=== PATIENT | female | born 1990 | race Hispanic/Latino ===

== ENCOUNTER 2016-11-06 19:57 | Emergency (ER) | payer OTHER ==
[~2016-11-06 19:57] MED LIST: ASCO100T11 PO; CYCL10TA9 PO; FERR-83 PO; IBUP-1827 PO; META800T16 PO; OMEP20CA11 PO; ONDA8TAB7 PO; OXYC1TAB24 PO; OXYC5TAB72 PO; PREN-121 PO
[2016-11-06 19:59] VITALS: BP 130/80; PULSE 104; RESP 16; O2SAT 98
--- NOTE | 2016-11-06 21:40 | ED.REPORT ---
HPI-General Illness Date of Service Nov 06, 2016 ED Provider: Floyd Trevino MD A 24 week A1 26 year old female with a history of migraines, c- section, and hyperthyroidism presents to the ED due to an electrical shock from a GFI kitchen outlet. The pt was cleaning the area with a sponge today when a bubble contacted the outlet. She was wearing shoes at the time and felt the shock through her whole body. She is now experiencing substernal chest soreness. The pt has been cleared by [facility]. Nursing Notes Stated Complaint: OUTLET SHOCK Chief Complaint: General Complaint Nursing Notes Reviewed: Yes Allergies: Coded Allergies: hydrocodone (Verified Allergy, Intermediate, rash--itch, 07/24/16) Scheduled Ascorbic Acid (Vitamin C) 100 Mg Tablet 100 MG PO QAM Ferrous Sulfate (Ferrous Sulfate) 325 Mg Tablet 325 MG PO DAILY Omeprazole (Omeprazole) 20 Mg Capsule.dr 20 MG PO BID Vit #108/Iron/FA ( One Tablet) 1 Each Tablet 1 EACH PO DAILYAC Scheduled PRN Cyclobenzaprine (Cyclobenzaprine) 10 Mg Tablet 10 MG PO HS PRN PRN Spasm Ibuprofen (Ibuprofen) 600 Mg Tablet 600 MG PO Q6H PRN PRN For Pain Ibuprofen (Ibuprofen) 600 Mg Tablet 600 MG PO QID PRN PRN For Pain Metaxalone (Skelaxin) 800 Mg Tablet 800 MG PO TID PRN PRN For Spasm Ondansetron ODT (Zofran ODT) 8 Mg Tablet 8 MG PO TID PRN PRN For Nausea oxyCODONE (oxyCODONE) 5 Mg Tablet 5-10 MG PO Q4H PRN PRN For Pain oxyCODONE-Acetaminophen 5-325 mg (oxyCODONE-Acetaminophen 5-325 mg) 1 Each Tablet 1-2 TAB PO Q6H PRN PRN For Pain General Time Seen by : 21:39 Chief Complaint Other (Electrical shock) Hx Obtained From: Patient Arrived By: Walk-in Sudden in Onset?: Yes Onset Occurred: 1 - 4 hours ago Recent Healthcare: No recent hospitalization, Recent doctor visit Similar Sx Previous: No Past Medical History Past Medical History History of ovarian cysts Hyperthyroid A1 Hx migraines GERD previous back injury while lifting at work Blood type A+ Past Surgical History x2 Reports: Tonsillectomy Smoking History Unknown if Ever Smoker Social History Alcohol Use: "Social" Drug Use: THC Other Social History: Good social support, Local resident Ambulatory Status Independent Review of Systems Full Review of Systems Constitutional: Denies: Fever Cardiovascular: Reports: Chest pain ("soreness") GI: Denies: Abdominal pain Musculoskeletal: Denies: Back pain Skin: Denies Rash Complete sys rev & neg: except as marked. Physical Exam Vital Signs Vital Signs Date Time Temp Pulse Resp B/P Pulse Ox O2 Delivery O2 Flow Rate FiO2 11/06/16 22:14 101 21 96 Room Air 11/06/16 19:59 36.8 104 16 130/80 98 Room Air Initial VS: Reviewed General/Constitutional: Awake, Alert Head / Eyes: Atraumatic, Normocephalic, PERRL, EOMI ENT: Atraumatic, Airway patent, Mucous membranes moist Neck: Atraumatic, Supple, Full range of motion Respiratory / Chest: Atraumatic, Breath sounds NL, Breath sounds = bilat, No respiratory distress Cardiovascular: Heart rate NL, Regular rhythm, Heart sounds NL Abdomen: Atraumatic, Soft, Non-tender Back: Atraumatic, Full range of motion Upper Extremities Upper Extremity / MS: Atraumatic, Full range of motion Lower Extremity / Pelvis / MS: Atraumatic, Full range of motion Skin: Atraumatic, Color NL, No rash, Warm, Dry Neurologic: Oriented X3, Speech NL, No motor deficits, No sensory deficits Psychiatric: Affect NL, Mood NL Re-Eval/Medical Decision Med Decision/Clinical Course Discharge and a wall out leg in the kitchen should have been on a GFI switch and therefore should not have been able to deliver a dangerous level of voltage. She has no wu on her hand though she does report some muscle soreness. The center has evaluated her fetus and has no concerns at this time. I do not believe that there is evidence for a dangerous select with discharge at this point and I think that discharge to home is appropriate. Counseled Regarding: Diagnosis, Need for follow-up, When/why to return to ED Discharge & Departure Primary Impression: Electric shock Encounter type: initial encounter Qualified Code: T75.4XXA - Electrocution, initial encounter Disposition: Home Discharge Condition All VS Reviewed: Yes Condition: Stable Additional Instructions: It is likely that you will have some muscle soreness, but there should not be any dangerous repercussions. Follow up with your primary care physician for further evaluation. Return to the emergency department if you develop any new or worsening symptoms. Referrals: Maria Teresa Cantu MD (PCP) Alberto Attestation Portions of this note were transcribed by Cooper Smart. I, Dr. Trevino personally performed the history, physical exam and medical decision-making; I reviewed and confirmed the accuracy of the information in the transcribed note. Signed by: Alberto Alatorre, 11/06/2016 and 22:42. copies to: Maria Teresa Cantu MD, Kirk H MD Nov 06, 2016 21:40 COOPER SMART Nov 06, 2016 22:05
[2016-11-06 22:14] VITALS: PULSE 101; RESP 21; O2SAT 96
== END 2016-11-06 22:15 | disposition home or self-care (01) ==
LOC: SED 19:57
DX: O9A.212 Injury, poisoning and certain other consequences of external causes complicating pregnancy, second trimester (principal); T75.4XXA Electrocution, initial encounter; W86.0XXA Exposure to domestic wiring and appliances, initial encounter; Y93.E5 Activity, floor mopping and cleaning; Y92.000 Kitchen of unspecified non-institutional (private) residence as the place of occurrence of the external cause; Y99.8 Other external cause status; Z3A.24 24 weeks gestation of pregnancy; K21.9 Gastro-esophageal reflux disease without esophagitis; Z88.5 Allergy status to narcotic agent

== ENCOUNTER 2016-12-05 21:07 | Emergency (ER) | payer OTHER ==
[~2016-12-05] VITALS: Ht 165.1 cm; Wt 103.6 kg
[2016-12-05 21:22] VITALS: BP 137/85; PULSE 110; RESP 18; O2SAT 99
--- NOTE | 2016-12-05 22:13 | ED.REPORT ---
HPI-Back Pain Under 40 Date of Service Dec 05, 2016 ED Provider: Werner Nicolas MD The patient is a 26 year old female who is 28 weeks presents to the ED with increasingly severe lower back pain after picking up her 5 year old daughter today. She denies fever, bleeding, bowel or bladder control, numbness or weakness in legs. She reports an uncomplicated, healthy, so far. She has one 5 year old daughter, also with an uncomplicated . BP is 138 /85. Nursing Notes Stated Complaint: LOW BACK PAIN 27 WKS PREG AND CLEARED Chief Complaint: General Complaint Nursing Notes Reviewed: Yes Allergies: Coded Allergies: hydrocodone (Verified Allergy, Intermediate, rash--itch, 07/24/16) Scheduled Ascorbic Acid (Vitamin C) 100 Mg Tablet 100 MG PO QAM Ferrous Sulfate (Ferrous Sulfate) 325 Mg Tablet 325 MG PO DAILY Omeprazole (Omeprazole) 20 Mg Capsule.dr 20 MG PO BID Vit #108/Iron/FA ( One Tablet) 1 Each Tablet 1 EACH PO DAILYAC Scheduled PRN Cyclobenzaprine (Cyclobenzaprine) 10 Mg Tablet 10 MG PO HS PRN PRN Spasm Ibuprofen (Ibuprofen) 600 Mg Tablet 600 MG PO Q6H PRN PRN For Pain Ibuprofen (Ibuprofen) 600 Mg Tablet 600 MG PO QID PRN PRN For Pain Metaxalone (Skelaxin) 800 Mg Tablet 800 MG PO TID PRN PRN For Spasm Ondansetron ODT (Zofran ODT) 8 Mg Tablet 8 MG PO TID PRN PRN For Nausea oxyCODONE (oxyCODONE) 5 Mg Tablet 5-10 MG PO Q4H PRN PRN For Pain oxyCODONE-Acetaminophen 5-325 mg (oxyCODONE-Acetaminophen 5-325 mg) 1 Each Tablet 1-2 TAB PO Q6H PRN PRN For Pain General Time Seen by MD: 22:12 Chief Complaint Back pain Hx Obtained From: Patient Arrived By: Walk-in Sudden in Onset?: Yes Onset Occurred: Just prior to arrival Symptom Duration: Since onset Caused by: Lifting Location: : Spinal lumbar area Quality: Painful Radiation: : Does not radiate Severity: Current: Mild Recent Healthcare: Recent doctor visit Similar Sx Previous: Yes Past Medical History Past Medical History History of ovarian cysts Hyperthyroid A1 Hx migraines GERD previous back injury while lifting at work Blood type A+ Past Surgical History x2 Reports: Tonsillectomy Smoking History Unknown if Ever Smoker Social History Alcohol Use: "Social" Drug Use: THC Other Social History: Good social support, Local resident Ambulatory Status Independent Review of Systems Constitutional: Denies: Fever Female: Reports: , Denies: Dysuria, Incontinence, Vaginal bleeding - abnl Musculoskeletal: Reports: Back pain Neurologic: Denies: Headache, Numbness, Seizure, Weakness Complete sys rev & neg: except as marked. Physical Exam Physical Exam Notes: no step off Initial Vital Signs Vital Signs (First) Date Time Temp Pulse Resp B/P Pulse Ox O2 Delivery O2 Flow Rate FiO2 12/05/16 21:22 36.7 110 18 137/85 99 12/05/16 22:40 Room Air Initial VS: Reviewed Head / Eyes: Atraumatic, Normocephalic Neck: Supple, Non-tender Respiratory: Breath sounds normal Cardiovascular: Regular rate & rhythm, Heart sounds normal Extremities: Vascular intact, No tenderness Skin: Warm, Dry Psychiatric: Mood/affect normal General/Constitutional: Awake, Alert, Cooperative Back: Inspection NL no focal midline tenderness Neurologic: Oriented X3, Speech NL, No motor deficits Abdomen: Atraumatic, Soft, Non-tender no step off Interpretation & Diagnostics Lab Results Interpretation Test 12/05/16 21:43 Urine Color Straw (YELLOW) Urine Appearance Clear (CLEAR,HAZY) Urine pH 6.5 (5.0-8.0) Urine Specific [place] 1.000 (1.003-1.035) Urine Protein Negativemg/dL (NEG,TRACE) Urine Glucose (UA) Negativemg/dL (NEGATIVE) Urine Ketones Negativemg/dL (NEGATIVE) Urine Occult Blood Trace (NEGATIVE) Urine Nitrite Negative (NEGATIVE) Urine Bilirubin Negative (NEGATIVE) Urine Urobilinogen Normalmg/dL (NORMAL) Urine Leukocyte Esterase Negative (NEGATIVE) Urine RBC 0-2/hpf (0-2) Urine WBC 0-5/hpf (0-5) Urine Epithelial Cells Occasional/hpf (NONE-MOD) Urine Crystals None seen (NONE SEEN) Urine Bacteria None/hpf (NONE-FEW) Urine Hyaline Casts None/lpf (NONE) Urine Granular Casts None seen (NONE SEEN) Urine Waxy Casts None seen (NONE SEEN) Urine Red Blood Cell Casts None seen (NONE SEEN) Urine White Blood Cell Casts None seen (NONE SEEN) Urine Mucus None seen (None Seen) Urine Trichomonas None seen (NONE SEEN) Urine Yeast None (NONE SEEN) Urinalysis Comment None Urine Culture Reflexed Not indicated Re-Eval/Medical Decision Consultation : Referral / Consult Name: Maria Teresa Cantu MD Call Returned at: 22:26 Note: Discussed BP with OB. Dr. Cantu agrees with plan, no further evaluation needed at the ED. Counseled Regarding: Diagnosis, Lab results, Need for follow-up, When/why to return to ED Discharge & Departure Impression: Primary Impression: Low back strain Encounter type: initial encounter Qualified Code: S39.012A - Strain of muscle, fascia and tendon of lower back, initial encounter Disposition: Home All VS Reviewed: Yes Condition: Stable Additional Instructions: Use ice and Tylenol to help with pain. Tylenol can be dosed at 1,000mg no more than 4 times a day with doses 6 hours or more apart. Keep ice packs wrapped in cloth, remove after 10-15 minutes, you can do this several times a day. Activity as tolerated, rest on a firm surface with knees bent slighty. It is normal for the ligaments to loosen up during - this can predispose to back pain. You may be sore a few days. Follow up with Dr. Baugh this week. If you start having fevers, weakness, or numbness in legs please return to the Emergency Department for further evaluation. Referrals: Maria Teresa Cantu MD (PCP) Scribe Attestation Portion of this note were transcribed by Isabella Parker. I, Dr. Nicolas, personally performed the history, physical exam, and medical decision-making: I reviewed and confirmed the accuracy for the information in the transcribed note. Signed by: diana Jeong, 12/05/16 2300 copies to: Maria Teresa Cantu MD, Donald L MD Dec 05, 2016 22:12 Isabella Parker Dec 05, 2016 22:21
[2016-12-05 22:27] LABS: APPEARANCE,URINE CLEAR (CLEAR,HAZY); COLOR,URINE STRAW (YELLOW); OCCULT BLOOD,URINE TRACE (NEGATIVE); PH,URINE 6.5 (5.0-8.0); UROBILINOGEN,URINE NORMAL (NORMAL)
[2016-12-05 22:40] VITALS: BP 136/80; PULSE 100; RESP 17; O2SAT 98
== END 2016-12-05 22:41 | disposition home or self-care (01) ==
LOC: SED 21:07
DX: O9A.213 Injury, poisoning and certain other consequences of external causes complicating pregnancy, third trimester (principal); S39.012A Strain of muscle, fascia and tendon of lower back, initial encounter; X50.0XXA Overexertion from strenuous movement or load, initial encounter; Y92.9 Unspecified place or not applicable; Y93.89 Activity, other specified; Y99.8 Other external cause status; K21.9 Gastro-esophageal reflux disease without esophagitis; E05.90 Thyrotoxicosis, unspecified without thyrotoxic crisis or storm; Z3A.28 28 weeks gestation of pregnancy; Z87.42 Personal history of other diseases of the female genital tract; Z88.5 Allergy status to narcotic agent

== ENCOUNTER 2017-01-26 01:36 | Emergency (ER) | payer OTHER ==
[~2017-01-26] VITALS: Ht 165.1 cm; Wt 105.0 kg
[2017-01-26 01:38] VITALS: BP 137/87; PULSE 98; RESP 18; O2SAT 96
--- NOTE | 2017-02-03 19:39 | PCM.EDPN ---
ED Note Date of Service February 03, 2017 Labs & Diagnostics Labs & Diagnostics Healthy 26-year-old term patient presented with palpitations. An EKG was performed in triage before she was sent up to labor and delivery. The EKG showed sinus tachycardia otherwise normal. No signs of ischemia. She was right recommended to be evaluated by labor and delivery to rule out labor and then come back to her department for evaluation. I never actually evaluated her in the emergency department I did however review the EKG. The medical screening examination was performed by the triage nurse. Mychal Pendleton DO February 03, 2017 19:39
== END 2017-01-26 03:09 | disposition home or self-care (01) ==
LOC: SED 01:36
DX: R00.2 Palpitations (principal)

== ENCOUNTER 2017-02-07 13:44 | Observation (INO) | payer OTHER ==
[~2017-02-07] VITALS: Ht 165.1 cm; Wt 108.9 kg
[2017-02-07 14:24] LABS: Mean Corpuscular Hemoglobin 25.9 pg (27.0-35.0); Mean Corpuscular Volume 79.6 fL (81-100)
[2017-02-07] MEDS ORDERED: Lactated Ringer's 1,000 ML IV ONE (19:40)
[2017-02-07] MEDS: Lactated Ringer's 1,000 ML IV SCH (19:59)
[2017-02-07] MEDS ORDERED: Sodium Chloride LOK Flush 10 mL Syringe IVFLUSH PRN (20:45)
[2017-02-07] MEDS ORDERED: Lactated Ringer's 1,000 ML IV PRN (20:45)
[2017-02-07] MEDS ORDERED: NIFEdipine 10 mg Capsule PO ONE (22:45)
--- NOTE | 2017-02-07 22:49 | HP ---
[address] [address] HISTORY AND PHYSICAL PATIENT: ADRIANA ALTAMIRANO : 1990 MR#: [id number] ADMIT: 02/07/2017 JOB ID: [id number] DATE: 02/07/2017 CHIEF COMPLAINT: The patient presented for scheduled nonstress test. HISTORY OF PRESENTING ILLNESS: This is a 26-year-old, 4, para 1-1-1-2 presented at 36 weeks and 5 days with expected date of delivery of March 02, 2017, dated by last menstrual period and consistent with 1st trimester ultrasound. The patient presented for scheduled nonstress test for uncontrolled gestational diabetes A2 on metformin, poor compliance and gestational hypertension. This complicated with: 1. Previous history of two sections. Plan for repeat section at 37 weeks. 2. Gestational hypertension with a history of severe preeclampsia in a previous where she was delivered at 35 weeks gestation. Baseline preeclampsia labs within normal limits. Blood pressure is in the 130s over 80s until last visit when blood pressure was 140/80 at 36 weeks and 1 day gestation. 3. Gestational diabetes A2 on metformin 1000 mg in the morning, 500 mg with lunch and 1000 mg with dinner. Poor compliance with glucose monitoring. Hemoglobin A1c was 6.1 at December 08, 2016 and hemoglobin A1c was 6% on January 07, 2017. 4. Smoker. 5. Obesity. BMI 40 today. 6. History of MRSA nasal swab was obtained twice during this and were negative. 7. Right upper quadrant pain. GI workup is negative. 8. Possible carpal tunnel syndrome. 9. History of labor. The patient presented today for a scheduled nonstress test and found to have tachycardia with a baseline in the 180s and accelerations up to 210. After further observation, baseline was down to 155, moderate variability, positive accelerations, and no decelerations. Gradually, the baseline decreased down to 140s, moderate variability, positive accelerations and rare variable decelerations to 120s. Then, baseline is mostly maintained at 135, moderate variability, positive accelerations, no decelerations. Category 1 tracing. Blood pressures: Initial blood pressure was 150/77, then blood pressure was 145/80s. The patient was complaining of headache that she describes as chronic headache, no different than the headaches that she was complaining of earlier in the , as early as 24 weeks. Denies change in vision. Denies nausea or vomiting or epigastric pain. Denies shortness of breath. After hydration, headache resolved. Preeclampsia labs within normal limits. No proteinuria with protein creatinine ratio of 0.22. Patient noted to be karine on the monitor every 2-4 minutes. The patient reported feeling them. The patient initially rates them at 7/10. After hydration and rest, the patient's rated contractions down to 3/10. Initially had suprapubic pressure that resolved after urination and had suprapubic tenderness at the right, resolved after voiding. The patient did report suprapubic tenderness and pain as 0/10 and no pain at the incision site after voiding and hydration. Cervical examination: Closed, thick, posterior at 0 station. Repeat exam after 1 hour is no change. No vaginal bleeding. The patient denies loss of fluid. Contractions are spaced out to be every 6 minutes. Patient denies need for any pain medications at this time. Contractions were noted to be every 3-5 minutes in previous visits in the last month. The patient denies change in intensity or frequency of the contractions compared to the contraction that she has been feeling in the last two weeks. PHYSICAL EXAM: Current blood pressure is 118/69, heart rate 82, respiratory rate 16, temperature 36.1, heart tones baseline 135, moderate variability, positive accelerations, no decelerations. Contractions every 6-9 minutes. General: Alert, oriented to time, place, and person. Appears comfortable and denies pain. Head: Normocephalic, atraumatic. Neck is supple. Chest: Breathing without difficulty. Abdomen is gravid. No tenderness. No incisional tenderness. Cervical exam: Cervix remained 0 dilatation, thick, medium consistency and posterior, 0 station. Lower extremity: +1 edema bilaterally. Deep tendon reflexes +2 bilaterally and no clonus. PAST GYNECOLOGICAL HISTORY: Last menstrual period May 26, 2016, was definite last menstrual period. PAST OBSTETRIC HISTORY: In 2011, had a term delivery at 40 weeks and 0 days gestation via section for nonreassuring heart tones presented as premature rupture of membranes. Pitocin was started but had a for nonreassuring heart tones ,and there was a nuchal cord as per patient history. Outcome was a female infant. Weight was 6 pounds. Then, she had a missed in 2011 followed by repeat section in 2015 for severe preeclampsia at 35 weeks gestation. Outcome: Female infant 2546 g. PAST MEDICAL HISTORY: Chronic back pain. Obesity. History of MRSA infection several years ago, resolved, confirmed by screening x2. PAST SURGICAL HISTORY: Two sections and tonsillectomy. SOCIAL HISTORY: Ten years tobacco use. Smoked four cigarettes per day during this . No alcohol or drug abuse. FAMILY HISTORY: Mother with history of breast cancer. Sister with mental illness and heroin IV abuse. Father's history is unknown. ALLERGIES: Allergic to HYDROCODONE. Reaction is a rash. LABORATORY: labs: Blood type is A positive. Antibody screening is negative. Rubella immune. RPR nonreactive. Hepatitis B surface antigen negative. HIV nonreactive. Gonorrhea and Chlamydia screen negative on August 02, 2016. Hemoglobin A1c on August 02, 2016 was 5.4, TSH was 3.35 and hepatitis C virus antibodies nonreactive. Baseline preeclampsia labs within normal limits. One hour glucose screening was elevated at 188. Pap smear within normal limits September 2014. Varicella antibodies less than 135. Admission labs: CBC with white blood cells of 9.4, hemoglobin 11.4, hematocrit 35.1%, platelets 223, BUN 10, creatinine 0.36, AST 16, ALT 25, uric acid 6.3, lactate dehydrogenase 135, all within normal limits. Urine: Random creatinine 144, urine random total protein 31. Protein creatinine ratio 0.22. ASSESSMENT: 1. This is a 26-year-old, 4, para 1-1-1-2 at 35 weeks and 5 days gestation with expected date of delivery of March 02, 2017, dated by last menstrual period and consistent with first-trimester ultrasound with gestational hypertension without severe feature. Initially, had a headache that resolved with hydration and rest, normal preeclampsia labs, and protein creatinine ratio within normal limits. No proteinuria. 2. Gestational diabetes, A2, on metformin. Poor compliance with monitoring. Had an episode of symptomatic hypoglycemia where random blood glucose was down to the 60s. Patient did not tolerate the D50 secondary to local burning sensation at the IV site. The patient was given oral juice and hypoglycemia resolved. 3. False labor with no cervical change and no uterine tenderness. No signs of uterine rupture or placental abruption. PLAN: Will observe overnight for blood pressure and signs of labor. 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 Delivery is not indicated at this time as tracing is Category 1, no signs of labor, uterine rupture, placenta abruption or sever preeclampsia or other indications of delivery. Will monitor glucose level and will reassess in the morning. Discussed plan of care with the patient. All questions were answered. The patient is agreeable with the plan. Okay for dinner at this time. Then, n.p.o. after midnight. RAINA
[2017-02-08] MEDS: Lactated Ringer's 1,000 ML IV SCH (05:18)
[2017-02-08] MEDS ORDERED: Dextrose 5% Lactated Ringer's 1,000 ML IV SCH (05:40)
[2017-02-08] MEDS ORDERED: Acetaminophen IV 1,000 MG in IV Premix 1 EACH IV ONE (05:40)
[2017-02-08 08:02] LABS: Mean Corpuscular Hemoglobin 25.9 pg (27.0-35.0); Mean Corpuscular Volume 80.2 fL (81-100)
--- NOTE | 2017-02-08 11:29 | PCM.DIOB ---
Obstetrical Disch Instruction Dates of Hospitalization Date of Hospital Admission February 07, 2017 at 18:25 Providers Admitting Physician: Maria Teresa Cantu MD Primary Care Physician: Glenys Smith MD Attending Physician: Maria Teresa Cantu MD Diet Discharge Diet: No restrictions Activity Discharge Activity-General: No restrictions Additional Instructions Discharge Instructions Please call with worsening contractions, pain bleeding or decreased movement. Follow Up Plan Follow-up appointment: Days (2) Caitlin Duque MD February 08, 2017 11:29
--- NOTE | 2017-02-08 12:15 | DIS ---
[address] [address] DISCHARGE SUMMARY PATIENT: ADRIANA ALTAMIRANO : 1990 MR#: [id number] ADMIT: 02/07/2017 JOB ID: [id number] DIS: ADMISSION DIAGNOSES: 1. A 36 plus five week intrauterine , complaining of regular uterine contractions. 2. History of gestational hypertension. 3. History of gestational diabetes A2, on metformin. 4. Tobacco usage. 5. Obesity. 6. History of methicillin-resistant Staphylococcus aureus. DISCHARGE DIAGNOSES: 1. A 36 plus five week intrauterine , complaining of regular uterine contractions. 2. History of gestational hypertension. 3. History of gestational diabetes A2, on metformin. 4. Tobacco usage. 5. Obesity. 6. History of methicillin-resistant Staphylococcus aureus. PROCEDURE PERFORMED: None. REASON FOR ADMISSION AND HOSPITAL COURSE: This is a 26-year-old, G4, P 1-1-1-2 female who presented at 36 plus five week gestation for a nonstress test due to her uncontrolled GDMA2, on metformin, and her gestational hypertension. She did have a repeat section scheduled for this , the . She was evaluated in triage during her NST and was noted to have tachycardia up in the 180s baseline with acels to the upper 200s. She was karine with some pain noted in her section scar. Additionally, she had elevated blood pressures in the nonsevere range during her evaluation in triage. Because of this, the decision was made to monitor the patient overnight. She was noted to be closed, thick and high, and she was karine every 3-5 minutes at the time of admission. She was given a single dose of Procardia and evaluated overnight. Over the evening of the until the , her contractions spaced out from every 3-5 minutes to every 12 minutes, and her tachycardia resolved with category 1 strip with a 140 baseline by the morning of hospital day #2. Additionally, her blood pressures were well controlled ranging 120s to 130s/70s to 80s overnight and into the morning. Her case had been discussed with Maternal Medicine with the admitting physician on the night prior, and her case did not feel at that time to warrant further intervention, and with improvement in her heart tones, contractions and stable blood pressure, she was deemed stable for discharge on hospital day #2. LABORATORY DATA: At the time of admission, labs were collected. Her white count was 8.5, hemoglobin was 10.6 and platelets were 223. Protein/creatinine ratio was noted to be 0.12. Her creatinine was 0.52. AST and ALT were within normal limits. Her TSH was 3.38, her free T4 was 0.8. She was A positive. Of note, her protein/creatinine ratio decreased from the 22nd from 0.22 down to 0.12 the following day. INSTRUCTIONS AT DISCHARGE: The patient was advised to discharge home and to monitor for any worsening abdominal pain or contractions, as well as headaches, vision changes, or worsening right upper quadrant pain. She did have chronic headaches, which were moderately well controlled, and she was instructed to notify us for any worsening of these. She was advised to continue hydration and notify us if her symptoms were changing at which point she should return, and we would re-evaluate to determine if she needed expedited delivery. At this point in time, she was deemed stable for discharge on the , with instructions to return on the for her scheduled repeat low transverse section. She was in agreement with this plan. All questions and concerns were answered.
[2017-02-08 13:48] VITALS: BP 125/69; PULSE 92; RESP 18
== END 2017-02-08 14:30 | disposition home or self-care (01) ==
LOC: FBCO 13:44 → FBC 18:25
PROVIDERS: ADMIT Obstetrics & Gynecology; ATTEND Obstetrics & Gynecology
DX: O60.03 Preterm labor without delivery, third trimester (principal); O13.3 Gestational [pregnancy-induced] hypertension without significant proteinuria, third trimester; O24.415 Gestational diabetes mellitus in pregnancy, controlled by oral hypoglycemic drugs; O99.213 Obesity complicating pregnancy, third trimester; O99.333 Smoking (tobacco) complicating pregnancy, third trimester; O76 Abnormality in fetal heart rate and rhythm complicating labor and delivery; F17.210 Nicotine dependence, cigarettes, uncomplicated; Z68.39 Body mass index [BMI] 39.0-39.9, adult; Z3A.36 36 weeks gestation of pregnancy; Z79.84 Long term (current) use of oral hypoglycemic drugs
CPT/HCPCS: 36415; 59025; 82565; 82570; 83615; 84156; 84439; 84443; 84450; 84460; 84520; 84550; 85027; 86850; 96374; G0378; J0131; J7120

== ENCOUNTER 2017-02-10 05:28 | Inpatient (IN) | payer OTHER ==
[~2017-02-10] VITALS: Ht 167.6 cm; Wt 111.1 kg
[~2017-02-10 05:28] MED LIST changes: -IBUP-1827 PO; -META800T16 PO; -OXYC1TAB24 PO; -OXYC5TAB72 PO
[2017-02-10] MEDS ORDERED: Lactated Ringer's 1,000 ML IV SCH (06:10)
[2017-02-10] MEDS ORDERED: Oxytocin 10 Unit/mL Inj IM PRN ×2 (06:10→09:35)
[2017-02-10] MEDS ORDERED: Hemorrhage Kit, Post Partum XX ONE ×2 (06:10→09:35)
[2017-02-10] MEDS ORDERED: CeFAZolin Inj 2 GM in IV Premix 1 EACH IV ONE (06:10)
[2017-02-10] MEDS ORDERED: Carboprost 250 mCg/mL Inj IM PRN ×2 (06:10→09:35)
[2017-02-10] MEDS ORDERED: Methylergonovine 0.2 mg/mL Inj IM PRN ×2 (06:10→09:35)
[2017-02-10] MEDS ORDERED: Sodium Citrate-Citric Acid 15 mL Solution PO SCH (06:10)
[2017-02-10 06:55] LABS: Mean Corpuscular Hemoglobin 25.7 pg (27.0-35.0); Mean Corpuscular Volume 75.8 fL (81-100)
--- NOTE | 2017-02-10 07:23 | PCM.HPANE ---
Patient Data Date of Service: February 10, 2017 Surgeon Admitting Provider:Maria Teresa Cantu MD Attending Provider:Maria Teresa Cantu MD Primary Care Physician:Glenys Smith MD Other Provider:Jeremy Mccall Anesthesia Reason for Visit repeat section repeat section Ht/WT & BMI Height (Feet): 5 Height (Inches): 5 Weight (Kilograms): 111 Body Mass Index Allergies Coded Allergies: hydrocodone (Verified Allergy, Intermediate, rash--itch, 07/24/16) Past Anesthesia History Anesthesia History: Denies:: Abnormal Airway, Anesthesia Reactions, Difficult Intubation, Fam Anesthesia Reaction, Fam Malignant Hypertherm, Malignant Hyperthermia Additional Information: facial itching with previous SAB's Diabetes History Hx Diabetes?: No Type of Diabetes: Type II MRSA MRSA: Yes (7 years ago, buttock currently cleared ) Medications Hypertension Medication: No Home Meds Incl Beta Marcos: No Active Scripts Ondansetron ODT (Zofran ODT)8 Mg Tablet8 Mg PO TID PRN For Nausea #12 TABLET Prov:Christian Washington PAC 06/07/16 Omeprazole 20 Mg Capsule.dr20 Mg PO BID #30 CAPSULE Ref 0 Prov:Christian Washington 06/07/16 Cyclobenzaprine 10 Mg Oalhuf08 Mg PO HS PRN Spasm #10 TABLET Ref 0 Prov:Melecio Shaffer MD 02/28/16 Ferrous Sulfate 325 Mg Bcymhe226 Mg PO DAILY #30 TABLET Ref 1 Prov:Steven Velasquez MD 09/06/15 Ascorbic Acid (Vitamin C)100 Mg Irhhtd638 Mg PO QAM #30 TABLET Ref 0 Prov:Steven Velasquez MD 09/06/15 Reported Medications Vit #108/Iron/FA ( One Tablet)1 Each Tablet1 Each PO DAILYAC 02/22/15 Discontinued Scripts Ibuprofen 600 Mg Xetmct613 Mg PO QID PRN For Pain #30 TABLET Prov:Kath Hein MD 12/08/15 oxyCODONE-Acetaminophen 5-325 mg 1 Each Tablet1-2 Tab PO Q6H PRN For Pain #10 TABLET Prov:Kath Hein MD 12/08/15 Metaxalone (Skelaxin)800 Mg Esknfv671 Mg PO TID PRN For Spasm #15 TABLET Prov:Melecio Shaffer MD 10/26/15 Ibuprofen 600 Mg Tsnvyo619 Mg PO Q6H PRN For Pain #30 TABLET Ref 1 Prov:Steven Velasquez MD 09/06/15 oxyCODONE 5 Mg Tablet5-10 Mg PO Q4H PRN For Pain #30 TABLET Ref 0 Prov:Steven Velasquez MD 09/06/15 History History of ENT Problems?: No HEENT History: Denies:: Abnormal Airway Difficult Intubation Dysphagia Hearing Problem Denture Type: None Teeth Condition: Tooth Decay Missing Teeth Hx of Heart Problems?: No Cardiovascular History: Denies:: AICD Atrial Fibrillation Chest Pain Congestive Heart Failure Hypertension Pacemaker Valvular Heart Disease Hx of Respiratory Problem?: No Respiratory History: Denies:: Asthma COPD Cough Hemoptysis Pneumonia Tuberculosis Hx Neurologic Problems?: Yes Neurological History: Positive for:: Headaches Denies:: CVA Seizures TIA Hx of GI Problems?: Yes Gastrointestinal History: Positive for:: Gastroesphageal Reflux (not adeq managed w/ omeprazole) Hx of Problems?: No Female Hx: Positive for:: Currently Hx Musculoskeletal Problems?: Yes Musculoskeletal History: Positive for:: Back Injury (injury at work (lifting)) Denies:: Joint Replacement Hx of Psycho/Social Problems?: Yes Psycho Social History: Positive for:: Anxiety (high levels of anxiety) Denies:: Bipolar Disorder Hx Depression Suicide Attempt Other Psych Pertinent History: non-compliant with medical management of her gestational hypertension or diabetes per correctional medicine physician Hx Surgeries?: Yes ( X 2) Hx Any Other Health Problems?: Yes Other History: Positive for:: Hospitalization ( of daughter) History Blood Transfusions: Denies:: Blood Transfuse Reaction Blood Transfusions Hx Diabetes: No Hx Alcohol Use: NoHx Substance Use: No Smoking Status: Current Some Day Smoker Have You Smoked inLast 12 mo: Yes Stop/Bang Treated for Sleep Apnea?: No Do You Have a CPAP Machine?: No S-Snoring: Do You Snore Loudly: No T-Tired: feel tired, fatigued: No O-Obsered: Observed not breath: No P-Blood Pressure: treated: Yes B- Body Mass Index > 35 kg/m2: Yes A- Age over 50: No N- Neck Large Circumference: No G- Gender Male: No OSCAR Risk Assessment: Low Risk, <3 Yes Risk Assessment Category Category 1A: Patient has history of documented sleep apnea, and HAS NOT received any narcotic, sedative or anesthesia administration during this stay. Category 1B: Patient has history of documented sleep apnea, and HAS received any narcotic , sedative or anesthesia administration during this stay Category 2: Patient has SUSPECTED Obstructive Sleep Apnea, and HAS received any narcotic , sedative or anesthesia administration during this stay. Category 3: Patient has SUSPECTED Obstructive Sleep Apnea and HAS NOT received narcotic, sedative or anesthesia administration during this stay. Category 4: Outpatient in Procedural Areas with known sleep apnea or who screen positive for High Risk via the STOP/BANG questionnaire. Exam Exam General Appearance: Alert, Oriented X3, Cooperative, No Acute Distress HEENT/AIRWAY: MP 2, Neck Movement (from), Mouth Opening (3), Other (tmd3, short thick neck) Lungs: Normal Air Movement Heart: Exam Unremarkable, Regular Rate/Rhythm, Normal S1, Normal S2, No Murmurs /Rubs/Gallops Additional Information back no signs of infection; moderate scoliosis noted Meds/Labs/Diagnostics Labs Test 02/10/17 05:56 White Blood Count 9.9th/mm3 (3.8-10.1) Red Blood Count 4.43mil/mm3 (3.90-5.20) Hemoglobin 11.4g/dL (12.0-15.6) Hematocrit 33.6% (35.0-46.0) Mean Corpuscular Volume 75.8fL (81-100) Mean Corpuscular Hemoglobin 25.7pg (27.0-35.0) Mean Corpuscular Hemoglobin Concent 33.9% (32.0-37.0) Red Cell Distribution Width 13.8% (12.3-15.4) Platelet Count 233bil/L (150-400) Plan Impression Patient chart reviewed, patient interviewed and anesthestic plan with risks, benefits, and alternatives discussed, and informed consent obtained. NPO per Anesth. Guidelines: Yes ASA Physical Status: ASA2 Mod Systemic Disease Anesthetic Plan: SAB Bene/Risks/Altern/Consents: Yes HP Complete Prior to Induction: Yes Other Pt desires spinal duramorph despite prior pruritis with administration. Will premed with diphenhydramine. Pt is going to pump breastmilk - informed pt of transmission risk of some medications into breast milk if requested during procedure. Pump and discard addressed. Cody Mandujano MD February 10, 2017 07:23
[2017-02-10] MEDS ORDERED: EPHEDrine Sulfate 50 mg/mL Inj IVPUSH PRN ×2 (07:25→08:55)
[2017-02-10] MEDS ORDERED: fentaNYL-PF 50 mCg/mL 2 mL Inj IVPUSH PRN (07:25)
[2017-02-10] MEDS ORDERED: Atropine 0.4 mg/mL Inj IV PRN (07:25)
--- NOTE | 2017-02-10 07:32 | PCM.HPOB ---
Subjective Date of Service: February 10, 2017 Referring Provider: Admitting Physician: Maria Teresa Cantu MD Primary Care Physician: [facility] Attending Physician: Maria Teresa Cantu MD Chief Complaint Presents for repeat delivery History of Present History of Present Illness Sawyer is a 26-year-old 4 para 1-1-1-2 at 37 weeks with an estimated due date of 03/02/2017. She is being admitted today for a repeat delivery. She has had 2 prior deliveries. Her has been complicated by gestational diabetes that has been poorly controlled on oral medication. The patient has been very noncompliant and defined with her care and recommendations. She refused to see the work station support specialist at [facility] and follow his recommendations. She has been sporadic and bringing in the any blood glucose logs to her visits taking it difficult to manage her blood glucose. In addition she has had intermittent elevated blood pressures greater than 140/90 at several of her visits. She is being delivered due to her poor control of her gestational diabetes and gestational hypertension. She does have a history of previous severe preeclampsia with her previous pregnancies. labs: She is A positive, rubella immune hepatitis B surface antigen negative HIV screen was negative. Her one-hour Glucola was 188. Gonorrhea Chlamydia cultures were negative. She has had to MRSA cultures that were negative this . OB History: (4), Para, Term (1), Pre-term (1), (1), Living (2) Obstetrical Complications: Gestational Diabetes, Gestational Hypertension, Other (Non-compliant) Past Medical History Obstetrical History: 1. First primary delivery at 40 weeks gestation for nonreassuring heart rate tracing 2. Second was a spontaneous 3. Third she had a repeat delivery at 35 weeks for severe preeclampsia Gynecologic History: Noncontributory Medical History: 1. History of 2 prior deliveries 2. History of MRSA has had 2 cultures this that were negative. 3. Gestational diabetes 4. Gestational hypertension Surgical History: 2 prior deliveries Hx Tobacco Use: Yes Smoking Status: Current Every Day Smoker Hx Alcohol Use: No Hx Substance Use: No Past Family History Living Arrangement: with Family Genetic Screening/Counseling Genetic Screening/Counseling: Negative Baby father-had child w defect: No Allergy Coded Allergies: hydrocodone (Verified Allergy, Intermediate, rash--itch, 07/24/16) Exam Vital Signs Vital signs reviewed and stable Exam Heart tones are 130s with good wukj-id-egys variability positive accelerations Constitutional: Well-developed, Well-nourished, Obese HEENT: Atraumatic Lungs: Clear to Auscultation Heart: Exam Unremarkable Abdomen: Gravid Neurological/Psychiatric: Alert, Oriented X3, Cooperative, No Acute Distress Labs/Diagnostics Labs Laboratory Tests 72 Hours Test 02/10/17 05:56 White Blood Count 9.9th/mm3 (3.8-10.1) Red Blood Count 4.43mil/mm3 (3.90-5.20) Hemoglobin 11.4g/dL (12.0-15.6) Hematocrit 33.6% (35.0-46.0) Mean Corpuscular Volume 75.8fL (81-100) Mean Corpuscular Hemoglobin 25.7pg (27.0-35.0) Mean Corpuscular Hemoglobin Concent 33.9% (32.0-37.0) Red Cell Distribution Width 13.8% (12.3-15.4) Platelet Count 233bil/L (150-400) OB Intrapartum Assessment/Plan Problems: (1) GDM, class A2 Status: Acute ICD Code: O24.414 (2) Gestational hypertension affecting fourth Plan: Plan for repeat delivery at 37 weeks gestation. Status: Acute ICD Code: O13.9 Maria Teresa Cantu MD February 10, 2017 07:31
[2017-02-10] MEDS ORDERED: Acetaminophen IV 1,000 MG in IV Premix 1 EACH IV ONE (08:55)
[2017-02-10] MEDS ORDERED: Ondansetron 2 mg/mL 2 mL Inj IVPUSH PRN (08:55)
[2017-02-10] MEDS ORDERED: MetoCLOpramide 5 mg/mL 2 mL Inj IVPUSH PRN (08:55)
[2017-02-10] MEDS ORDERED: Acetaminophen IV 1,000 MG in IV Premix 1 EACH IV PRN (09:35)
[2017-02-10] MEDS ORDERED: Oxytocin 30 Units/500 mL LR 30 UNITS in IV Premix 1 EACH IV PRN (09:35)
[2017-02-10] MEDS ORDERED: Sodium Chloride LOK Flush 10 mL Syringe IVFLUSH PRN (09:35)
[2017-02-10] MEDS ORDERED: diphenhydrAMINE 50 mg Capsule PO PRN (09:35)
[2017-02-10] MEDS ORDERED: LANOlin HPA 7 Gm Ointment TOPICAL PRN (09:35)
--- NOTE | 2017-02-10 10:20 | PCM.ANEP1 ---
Post Anesthesia PACU Phase 1 Assessment Date of Service: February 10, 2017 Anesthetic Administered: SAB Level of Alertness: Awake, talking SAM's with Equal Strength: Yes (residual block as expected at this time) Pain: No Pain Scale Score: 0 Nausea or Vomiting: No CV Function & Hydration Stable: Yes Airway Device: none Oxygen Delivery: Room Air Lungs: Normal Air Movement PACU Phase 2 Assessment Complications: No Follow up Care: No Patient Instructions Provided: N/A Cody Mandujano MD February 10, 2017 10:20
--- NOTE | 2017-02-10 10:20 | OP ---
[address] [address] OPERATIVE REPORT PATIENT: ADRIANA ALTAMIRANO : 1990 MR#: [id number] ADMIT: 02/10/2017 JOB ID: [id number] DATE OF SURGERY: 02/10/2017 PREOPERATIVE DIAGNOSIS(ES): 1. Gestational hypertension. 2. Gestational diabetes. Uncontrolled on oral medication. 3. Obesity. 4. Previous delivery x2. POSTOPERATIVE DIAGNOSIS(ES): 1. Gestational hypertension. 2. Gestational diabetes. Uncontrolled on oral medication. 3. Obesity. 4. Previous delivery x2. 5. Delivered. PROCEDURE PERFORMED: 1. Repeat low transverse delivery. 2. Lysis of adhesions. SURGEON: Maria Teresa Cantu MD. ACTUARIAL MANAGER: Caitlin Duque MD. Dr. Duque was necessary for this procedure to help with exposure and delivery of infant. ANESTHESIA: Spinal. COMPLICATIONS: None. PATHOLOGY SENT: None. FINDINGS AT THE TIME OF SURGERY: A female in a cephalic presentation with an weight of 3771 grams with Apgars of 9 and 9. There were omental adhesions to the anterior abdominal wall closer to the umbilicus. The bladder was adhered high on the right side of the patient's uterus. Otherwise, the fallopian tubes and ovaries were normal in appearance bilaterally. DESCRIPTION OF PROCEDURE: The patient was taken to the operating room, where her spinal anesthesia was found be adequate. She was placed in a lithotomy position in a leftward tilt and prepared and draped in normal sterile fashion. A Pfannenstiel incision was made with a scalpel through her previous scar. This was carried down to the underlying fascia with Bovie cautery. The fascia was nicked in the midline, and this incision was extended laterally with the Agrawal scissors. The fascia was then tented up and the underlying rectus muscle was dissected off with blunt and sharp dissection both superiorly and inferiorly. The rectus muscles were already in the midline and the peritoneum was entered bluntly with the surgeon's hands. There were some omental adhesions that required lysis. This was done using Bovie cautery. The lower uterine segment was identified. A bladder flap was created, and adhesions of the bladder to the right side of the uterus were taken down with Metzenbaum scissors. The uterus was then incised in a low transverse fashion with the scalpel. Infant was delivered in a cephalic presentation without difficulty. After 1 minute the cord was doubly clamped and ligated, and the infant handed off to the awaiting nurses. Cord blood was sent. The placenta was removed manually. Uterus then exteriorized, cleared of all clots and debris. The uterine incision was repaired in two layers with 0 Vicryl suture in a running fashion. A third suture of 0 Vicryl was used for hemostasis. The gutters were then irrigated with copious amounts of normal saline. The uterus was returned to the patient's peritoneal cavity. The uterine incision was inspected again and irrigation was performed. Good hemostasis was assured. The fascia was then reapproximated with two sutures of 0 PDS on loops in a running fashion. They were advanced to the midline and tied separately. The subcutaneous layer was closed with 0 plain gut. The skin was closed with 4-0 Monocryl in a subcuticular fashion. Dermabond and Steri-Strips applied. All lap, instrument and needle counts were correct x2 at the end of the procedure. The patient was taken to her room in good condition. RAINA
[2017-02-10] MEDS: Lactated Ringer's 1,000 ML IV SCH ×2 (10:25→19:27)
[2017-02-10] MEDS: hydrOXYzine Pamoate 25 mg Capsule PO PRN ×2 (10:57→20:06)
[2017-02-10] MEDS ORDERED: Phenylephrine/NS-PF 100 mCg/mL 5 mL Syringe IVPUSH ONE (13:09)
[2017-02-10] MEDS ORDERED: Morphine PF 1 mg/mL 10 mL Inj ONE (13:09)
[2017-02-10] MEDS ORDERED: Propofol 10,000 mCg/mL 20 mL Inj ONE (13:09)
[2017-02-10] MEDS ORDERED: EPHEDrine/NS 5 mg/mL 5 mL Syringe ONE (13:09)
[2017-02-10] MEDS ORDERED: Ondansetron 2 mg/mL 2 mL Inj ONE (13:09)
--- NOTE | 2017-02-10 14:06 | NUR ---
Social Work Note: Referral received SYNOPTIC METEOROLOGIST spoke with FBC machine cementer and folder Malissa and was informed that Pt would be delivering via today and would be ready for assessment on 02/11/2017. LUIS CARLOS Ferrer, AAC
[2017-02-11] MEDS: Lactated Ringer's 1,000 ML IV SCH ×2 (01:34→09:34)
[2017-02-11 05:55] LABS: Mean Corpuscular Volume 78.3 fL (81-100)
[2017-02-11] MEDS: Ascorbic Acid 500 mg Tablet PO SCH (07:41)
[2017-02-11] MEDS: diphenhydrAMINE 25 mg Capsule PO PRN ×3 (11:20→19:45)
--- NOTE | 2017-02-11 16:14 | NUR ---
RIKKIB RNC agree with charting by BRANDEE LEMUS this day this pt
[2017-02-11] MEDS: hydrOXYzine Pamoate 25 mg Capsule PO PRN (20:32)
[2017-02-11] MEDS: oxyCODONE-Acetamin 5-325 mg Tablet PO PRN (22:08)
[2017-02-12] MEDS: Lactated Ringer's 1,000 ML IV SCH ×2 (01:34→09:34)
[2017-02-12] MEDS: oxyCODONE-Acetamin 5-325 mg Tablet PO PRN ×2 (03:30→07:35)
[2017-02-12 06:02] LABS: BASOPHILS % (AUTO) 0.1 % (0-3); EOSINOPHILS % (AUTO) 2.7 % (0-5); MONOCYTES % (AUTO) 4.1 % (4-12); Mean Corpuscular Volume 80.9 fL (81-100); NEUTROPHILS % (AUTO) 75.8 % (40-74); Platelet Count 196 bil/L (150-400)
[2017-02-12] MEDS: Ascorbic Acid 500 mg Tablet PO SCH (07:29)
[2017-02-12] MEDS: hydrOXYzine Pamoate 25 mg Capsule PO PRN (07:30)
[2017-02-12] MEDS ORDERED: oxyCODONE-Acetamin 5-325 mg Tablet PO PRN (07:47)
--- NOTE | 2017-02-12 10:39 | PCM.DIMED ---
Discharge Instructions Date of Service February 12, 2017 Dates of Hospitalization February 10, 2017 at 05:28 Diet Discharge Diet: No restrictions Activity Discharge Activity: No restrictions Call your provider Call your provider for: Fever or Chills, Shortness of breath, Bleeding, Chest pain, Vomitting, Excessive diarrhea, Weakness (unilateral) Patient Instructions Follow-up with PCP in: 6 weeks Inderjit Reyna MD February 12, 2017 10:39
[2017-02-12] MEDS ORDERED: FERR-74 PO (10:43)
[2017-02-12] MEDS ORDERED: IBUP800T28 PO (10:43)
[2017-02-12] MEDS ORDERED: DOCU-41 PO (10:44)
[2017-02-12] MEDS ORDERED: OXYC1TAB24 PO (10:44)
[2017-02-12 10:53] VITALS: BP 115/60; PULSE 74; RESP 15
--- NOTE | 2017-02-12 14:46 | DIS ---
[address] [address] DISCHARGE SUMMARY PATIENT: ADRIANA ALTAMIRANO : 1990 MR#: [id number] ADMIT: 02/10/2017 JOB ID: [id number] DIS: 02/12/2017 ADMITTING DIAGNOSES: 1. Gestational diabetes. 2. Gestational hypertension. 3. Obesity. 4. History of prior deliveries x2. DISCHARGE DIAGNOSES: 1. Gestational hypertension. 2. Gestational diabetes. 3. Obesity. 4. Status post repeat low transverse delivery. The patient is a 26-year-old 3, para 3 now, who came to Labor and Delivery on February 10, 2017 for a scheduled repeat delivery x2. The surgery went uncomplicated, delivered a female with weight 3775 g. Apgars of 9 at one minute and 9 at five minutes. On day one, February 11, 2017 the patient was stable, afebrile. Breast feeding. She had excessive postoperative pain and requested an additional dose of narcotics. The incision was dry, clean and intact. Steri-Strips were applied. The fundus was firm. LABORATORIES: WBC count 12.7, hemoglobin 10.7, hematocrit 32.2, platelets 180. On day two, February 12, 2017, the patient was ambulating, breast pumping, was afebrile. Vitals showed temperature 36.7, blood pressure 126/72. The uterine fundus was firm. There was no vaginal bleeding. No abnormal vaginal discharge. Incision was checked again. It was dry, clean and intact. LABORATORIES: WBC count 8.9, hemoglobin 9.8, hematocrit 30.5, platelets 196, neutrophils 75.8%, lymphocytes 17.1%, no left shift. The patient was sent home in a stable condition on postoperative day two, February 12, 2017, with all discharge criteria met. She was advised to take Motrin extra-strength for pain and to use Percocet responsibly. DISCHARGE MEDICATIONS: Included: 1. Colace 100 mg p.o. b.i.d. 2. Percocet 5/325 mg 1-2 tabs p.o. 4x daily p.r.n. for pain. 3. Motrin 800 mg p.o. t.i.d. p.r.n. for pain. 4. Ferrous sulfate 325 mg p.o. b.i.d. Follow up visit in the clinic is scheduled in six weeks.
--- NOTE | 2017-02-12 15:29 | NUR ---
Social work brief note: D: AUTO FORMER MACHINE OPERATOR consult requested due to MOB's deferral of feeds to FOB and her general anger and agitation in the presence of her children. Per RN note prior to delivery, "Mom sitting up in bed before her surgery yelling loudly and pointing at them, "Get out of here now!! Leave! Get Out!" Her small children were crying and left with the FOB. Mom then started yelling "F" this and "F" that at her mother". AUTO FORMER MACHINE OPERATOR attempted to meet with MOB to assess however she refused. AUTO FORMER MACHINE OPERATOR reviewed previous documentation from AUTO FORMER MACHINE OPERATOR after MOB delivered in 2014 and her presentation was similar and warranted a CPS report. MOB has two previous children in addition to baby and has full custody. FOB has been present in the hospital and assisting with care during current . AUTO FORMER MACHINE OPERATOR discussed case with Dean Of Admissions Dr. Pate who felt baby was stable and safe for discharge with MOB, however after discussion with RN a CPS report was made post discharge. A: MOB calmly refused to speak with AUTO FORMER MACHINE OPERATOR. P: AUTO FORMER MACHINE OPERATOR completed CPS referral due to agitation in the presence of MOB's children as well as limited participation in baby's care and feeds. AUTO FORMER MACHINE OPERATOR completed report with Jony Olivas at CPS, intake number [id number]. Per CPS pt has previous CPS investigation but no current open case. No imminent threat found that would necessitate holding MOB and baby in the hospital. LUIS CARLOS Moeller
[2017-02-12] MEDS ORDERED: HYDR50CA PO (22:32)
== END 2017-02-12 12:00 | disposition home or self-care (01) | DRG 766 ==
LOC: FBC 05:28 → EDSTATUS 07:15
PROVIDERS: ADMIT Obstetrics & Gynecology; ATTEND Obstetrics & Gynecology
PROC: 10D00Z1 Extraction of Products of Conception, Low, Open Approach (ICD-10-PCS; principal; 2017-02-10 07:15)
DX: O13.3 Gestational [pregnancy-induced] hypertension without significant proteinuria, third trimester (principal); O24.425 Gestational diabetes mellitus in childbirth, controlled by oral hypoglycemic drugs; Z3A.37 37 weeks gestation of pregnancy; O99.213 Obesity complicating pregnancy, third trimester; O34.211 Maternal care for low transverse scar from previous cesarean delivery; Z37.0 Single live birth; Z68.39 Body mass index [BMI] 39.0-39.9, adult

== ENCOUNTER 2017-02-12 19:32 | Emergency (ER) | payer OTHER ==
[~2017-02-12] VITALS: Ht 165.1 cm; Wt 111.4 kg
[~2017-02-12 19:32] MED LIST changes: +DOCU-41 PO; +FERR-74 PO; +IBUP800T28 PO; +OXYC1TAB24 PO
[2017-02-12 19:43] VITALS: BP 142/87; PULSE 109; RESP 17; O2SAT 99
--- NOTE | 2017-02-12 20:05 | ED.REPORT ---
HPI-Abd Pain F Under 40 Date of Service February 12, 2017 ED Provider: Alex Clarke DO Pt is a 26 y/o female w/ a hx of hyperthyroid presenting to the ED c/o diffuse abdominal pain and swelling onset 15:00 today. She c/o associated dizziness, vaginal bleeding a bit heavier than a period. She has not had to changed pads today and there are no blood clots. Pt denies SOB, unilateral extremity swelling , fever, chills. She had a performed [address] Cantu with an uneventful delivery and was released earlier today. She was prescribed 10 mg Oxycodone for pain. The patient had gestational diabetes during for which she was given Metformin and her sugars were reportedly not well controlled during the , but not bad enough to be started on insulin. She had pre-eclampsia last year, but none for this recent . She smokes cigarettes. Nursing Notes Stated Complaint: 3 DAYS POST ,BLEEDING/PAIN,EDEMA Chief Complaint: Female Abdominal Pain Nursing Notes Reviewed: Yes Allergies: Coded Allergies: hydrocodone (Verified Allergy, Intermediate, rash--itch, 07/24/16) Scheduled Docusate Sodium (Colace) 100 Mg Capsule 100 MG PO BID Ferrous Sulfate (Ferrous Sulfate) 325 Mg Tablet 325 MG PO DAILY Ferrous Sulfate (Feosol) 325 Mg Tablet 325 MG PO BIDWM Vit #108/Iron/FA ( One Tablet) 1 Each Tablet 1 EACH PO DAILYAC Scheduled PRN Cyclobenzaprine (Cyclobenzaprine) 10 Mg Tablet 10 MG PO HS PRN PRN Spasm Hydroxyzine Pamoate (Vistaril) 50 Mg Capsule 50 MG PO TID PRN PRN For Anxiety or Agitation Ibuprofen (Ibuprofen) 800 Mg Tablet 800 MG PO Q6H PRN PRN For Pain oxyCODONE-Acetaminophen 5-325 mg (oxyCODONE-Acetaminophen 5-325 mg) 1 Each Tablet 1-2 TAB PO Q4H PRN PRN For Pain General Time Seen by MD: 20:00 Chief Complaint Abdominal pain Hx Obtained From: Patient Arrived By: Walk-in Sudden in Onset?: No Onset Occurred: 5 - 8 hours ago Symptom Duration: Since onset Progression since Onset: Constant Location: : Diffuse Quality: Painful Severity: Current: Moderate Severity: Maximum: Moderate Recent Healthcare: Recent doctor visit, Recent hospitalization Similar Sx Previous: No Past Medical History Past Medical History History of ovarian cysts Hyperthyroid A1 Hx migraines GERD previous back injury while lifting at work Blood type A+ Past Surgical History x2 Reports: Tonsillectomy Smoking History Current Some Day Smoker Social History Alcohol Use: "Social" Drug Use: THC Other Social History: Good social support, Local resident Ambulatory Status Independent Review of Systems Constitutional: Denies: Chills, Fever Respiratory: Denies: Non-productive cough, Shortness of breath Cardiovascular: Reports: Edema, Denies: Chest pain, Dyspnea on exertion GI: Reports: Abdominal pain, Denies: Diarrhea, Nausea, Vomiting Female: Reports: Vaginal bleeding - abnl, Denies: Vaginal discharge Complete sys rev & neg: except as marked. Physical Exam Initial Vital Signs Vital Signs (First) Date Time Temp Pulse Resp B/P Pulse Ox O2 Delivery O2 Flow Rate FiO2 02/12/17 19:43 37.0 109 17 142/87 99 Room Air Initial VS: Reviewed Head / Eyes: Atraumatic, Normocephalic, PERRL ENT: Mucous membranes moist, Conjunctiva normal, No scleral icterus Neck: Supple, Full range of motion Extremities: Vascular intact, Neuro intact, No swelling, No tenderness Skin: Warm, Dry, No cyanosis Neurologic: Alert, Oriented, Nonfocal Psychiatric: Mood/affect normal, Behavior normal, Normal thought content General/Constitutional: Awake, Alert, Cooperative, Not toxic appearing Distress / Hydration: Positive: Distress mild Respiratory / Chest: Breath sounds NL, Breath sounds = bilat, No respiratory distress, No rales, No rhonchi, No wheezing Cardiovascular: Heart rate NL, Regular rhythm, Heart sounds NL, No gallop, No murmurs, No rubs, Cap refill not delayed, Peripheral circulation NL Lower Ext Edema: Positive: Bilateral 1+, Pitting Abdomen: Atraumatic, Soft, No guarding, No rebound, No distention Tenderness/Guarding/Rebound: Positive: Tender diffuse (mod) incision is clean, intact, and dry No surrounding erythema Abdomen is appropriately tender Back: Full range of motion, Painless range of motion Interpretation & Diagnostics Lab Results Interpretation Result Diagram: 02/12/17 2030 02/12/17 2030 Test 02/12/17 20:30 White Blood Count 9.3th/mm3 (3.8-10.1) Red Blood Count 4.03mil/mm3 (3.90-5.20) Hemoglobin 10.5g/dL (12.0-15.6) Hematocrit 32.3% (35.0-46.0) Mean Corpuscular Volume 80.1fL (81-100) Mean Corpuscular Hemoglobin 26.1pg (27.0-35.0) Mean Corpuscular Hemoglobin Concent 32.5% (32.0-37.0) Red Cell Distribution Width 14.0% (12.3-15.4) Platelet Count 216bil/L (150-400) Neutrophils (%) (Auto) 73.6% (40-74) Lymphocytes (%) (Auto) 18.8% (14-46) Monocytes (%) (Auto) 4.3% (4-12) Eosinophils (%) (Auto) 2.9% (0-5) Basophils (%) (Auto) 0.1% (0-3) Sodium Level 141mEq/L (134-144) Potassium Level 3.9mEq/L (3.5-5.2) Chloride Level 106mEq/L (97-108) Carbon Dioxide Level 21mmol/L (18-29) Blood Urea Nitrogen 9mg/dL (6-20) Creatinine 0.49mg/dL (0.57-1.00) Estimat Glomerular Filtration Rate 220mL/min (>59) Glucose Level 80mg/dL (60-99) Lactic Acid Level 0.9mmol/L (0.4-2.0) Calcium Level 8.9mg/dL (8.5-10.1) Total Bilirubin 0.2mg/dL (0.0-1.2) Aspartate Amino Transf (AST/SGOT) 12U/L (0-50) Alanine Aminotransferase (ALT/SGPT) 15U/L (0-32) Alkaline Phosphatase 138U/L (25-150) Total Protein 5.8g/dL (6.4-8.4) Albumin 2.5g/dL (3.4-5.0) Lipase 18U/L (13-60) Hold Membreno Top Tube Received (Received) Re-Eval/Medical Decision Med Decision/Clinical Course 26-year-old G2 now P2 stop day 3 after uncomplicated repeat section presents with incisional pain and vaginal bleeding. She has not had fevers or chills. She denies shortness of breath. She has only gone through one pad today and is passing occasional fingernail-sized clots. She states that her Percocet 5 mg 2 tablets every 6-8 hours is not helping her pain. She states she cannot walk and she has significant swelling of her lower extremities. She does have 1+ pitting edema bilaterally of the lower extremities without any erythema. Labs are unremarkable including a normal white count, hemoglobin that is stable from postop, and no elevated creatinine or other signs of preeclampsia. Blood pressure today is 142/80, and patient does not have any headache or vision changes. I spoke with Dr. Reyna at discharged the patient earlier today and notes that she continued to request pain medications and benzodiazepines while in the hospital. Social work and for me that there is a CPS investigation going on with this child. I cannot identify anything concerning or unusual on her exam. I reassured her of these findings and she was discharged home to follow-up with Dr. Cantu next week. Patient requested that she be given Vistaril as this seemed to augment her pain medication and help with anxiety in the hospital. A small prescription was provided today. I also gave her a bottle of magnesium citrate to drink to help her bowels start moving and she is concerned about constipation. Because her pain has not been controlled with the oxycodone 5/325 2 tablets every 4 hours, I told her she could take 3 tablets every 6 hours but could not take more than this due to the Tylenol. The patient understands and agrees. Dr. Reyna notes that she was given 50 Percocets at discharge this morning. I gave her 1 tablet of Lasix to see if we could jump start some of her diuresis here in the ER but did not discharge her home with a prescription of this medication. I told her that within the next week swelling should resolve Source of Hx: Old records Re-Evaluation/Progress : Time of Eval: 21:59 Patient Status: Condition improved, Mild relief, Pain improved Re-Evaluation/Progress Note: Pt rechecked. She becomes agitated when being discharged because her pain is still persistent. She appears in no visible distress although is still reporting significant pain. Informed pt of plan for treatment. Pt understands and agrees with plan for treatment. F/U instructions and RTER warnings given. All questions addressed. Consultation : Referral / Consult Name: Inderjit Reyna MD Call Returned at: 21:45 Punch Card Operator: Agrees with eval, Agrees with plan Note: Case discussed with OB. Informs me that the patient was asking for additional pain medication and benzos prior to her discharge. Counseled Regarding: Diagnosis, Lab results, Need for follow-up, When/why to return to ED Discharge & Departure Primary Impression: Post-operative pain Additional Impressions: Constipation Constipation type: unspecified constipation type Qualified Code: K59.00 - Constipation, unspecified Lower extremity edema Laterality: bilateral Qualified Code: R60.0 - Localized edema Anxiety Disposition: Home Discharge Condition All VS Reviewed: Yes Condition: Stable Patient Instructions: Acute Abdominal Pain (ED) Additional Instructions: There are no dangerous findings on our evaluation here in the ER today. Your vaginal bleeding and pain are typical for someone who has just had a . Your incision looks very good. I spoke with Dr. Reyna in OB who saw you earlier today at discharge and he okayed taking 3 tablets of Percocet 5/ 325 every 6 hours or 2 tablets every 4 hours. You should not take more than this because it would be too much Tylenol and could hurt your liver permanently. Be up and moving despite the pain. The swelling in your legs should go away. There are no signs of preeclampsia or concerning lab findings. No signs of infection are noted. As you found relief from Vistaril in the hospital I have prescribed this which you can take for anxiety. Please follow- up with your OB in clinic next week. Return to the ER for new or worsening symptoms. Referrals: Glenys Smith MD (PCP) Scribe Attestation Portions of this note were transcribed by Louis Lara. I, Dr. Nicolas personally performed the history, physical exam and medical decision-making; I reviewed and confirmed the accuracy of the information in the transcribed note. Signed by Alberto Zhang, 02/12/172044 copies to: Glenys Smith MD, Gary R DO February 12, 2017 20:05 LOUIS LARA February 12, 2017 20:13
[2017-02-12] MEDS ORDERED: oxyCODONE-Acetamin 5-325 mg Tablet PO ONE ×3 (20:15→22:10)
[2017-02-12 20:49] LABS: BASOPHILS % (AUTO) 0.1 % (0-3); EOSINOPHILS % (AUTO) 2.9 % (0-5); MONOCYTES % (AUTO) 4.3 % (4-12); Mean Corpuscular Hemoglobin 26.1 pg (27.0-35.0); Mean Corpuscular Volume 80.1 fL (81-100); NEUTROPHILS % (AUTO) 73.6 % (40-74); Platelet Count 216 bil/L (150-400)
[2017-02-12] MEDS ORDERED: HYDR50CA PO (22:32)
[2017-02-12 22:55] VITALS: BP 132/74; PULSE 88; RESP 16; O2SAT 99
== END 2017-02-12 22:56 | disposition home or self-care (01) ==
LOC: SED 19:32
DX: G89.18 Other acute postprocedural pain (principal); K59.00 Constipation, unspecified; R60.0 Localized edema; E05.90 Thyrotoxicosis, unspecified without thyrotoxic crisis or storm; F41.9 Anxiety disorder, unspecified; K21.9 Gastro-esophageal reflux disease without esophagitis; F17.210 Nicotine dependence, cigarettes, uncomplicated; F12.10 Cannabis abuse, uncomplicated; Z88.5 Allergy status to narcotic agent
CPT/HCPCS: 36415; 80053; 83605; 83690; 85025; 99284; Q0177

== ENCOUNTER 2017-04-22 13:50 | Day surgery (SDC) | payer OTHER ==
[~2017-04-22] VITALS: Ht 165.1 cm; Wt 91.6 kg
[~2017-04-22 13:50] MED LIST changes: +0.9% Sodium Chloride 1,000 ML IV SCH; -ASCO100T11 PO; +CLIN-78 PO; -CYCL10TA9 PO; -DOCU-41 PO; -FERR-74 PO; -FERR-83 PO; -IBUP800T28 PO; +METF500T4 PO; -ONDA8TAB7 PO; -PREN-121 PO; +Sodium Chloride LOK Flush 10 mL Syringe IV PRN; +fentaNYL-PF 50 mCg/mL 2 mL Inj IVPUSH PRN
[2017-04-22 15:04] VITALS: BP 120/68; PULSE 83; O2SAT 98
[2017-04-22 15:56] VITALS: BP 105/58; PULSE 85; RESP 17; O2SAT 97
--- NOTE | 2017-04-22 20:26 | ENDO ---
[address] [address] ENDOSCOPY PROCEDURE PATIENT: ADRIANA ALTAMIRANO : 1990 MR#: [id number] ADMIT: 04/22/2017 JOB ID: [id number] DATE OF SERVICE: 04/22/2017 PROCEDURE: Attempted esophagogastroduodenoscopy and colonoscopy. PREOPERATIVE DIAGNOSIS(ES): Diarrhea, epigastric pain. POSTOPERATIVE DIAGNOSIS(ES): 1. Patient could not tolerate the EGD in which the procedure was stopped. 2. Colonoscopy could only go through the sigmoid colon which the patient was in tremendous pain and requested to stop. ANESTHESIA: Fentanyl 200 mcg, Versed 10 mg IV administered. COMPLICATIONS: None. BLOOD LOSS: Minimal. DESCRIPTION OF PROCEDURE: After risks and benefits explained to the patient, informed consent was obtained. After anesthesia administered, upper endoscope was attempted but then was aborted due to the patient requested due to pain. A colonoscope was then attempted into the sigmoid but again the patient was crying and requested to stop the procedure. FINDINGS: During the colonoscopy, there were no masses or ulcers seen in the sigmoid colon. The colonoscopy was then aborted because patient was in tremendous amount of pain and requested to stop and started crying. The upper endoscopy was even attempted but the patient requested to stop and was pulling on the scope, which the patient was crying. IMPRESSION: 1. Attempted esophagogastroduodenoscopy which was stopped due to pain. 2. Attempted colonoscopy to the sigmoid colon which was stopped due to pain. RECOMMENDATIONS: The patient should be scheduled for an EGD and colonoscopy with anesthesia.
== END 2017-04-22 23:59 | disposition home or self-care (01) ==
LOC: END 13:50
PROVIDERS: ATTEND Internal Medicine Gastroenterology
DX: R19.7 Diarrhea, unspecified (principal); R10.13 Epigastric pain; I10 Essential (primary) hypertension; F17.210 Nicotine dependence, cigarettes, uncomplicated; E11.9 Type 2 diabetes mellitus without complications; Z79.84 Long term (current) use of oral hypoglycemic drugs; Z53.8 Procedure and treatment not carried out for other reasons
CPT/HCPCS: 43235; 45378; 99152; G0500; J2250; J3010; J7030

== ENCOUNTER 2017-05-05 14:05 | Day surgery (SDC) | payer OTHER ==
[~2017-05-05] VITALS: Ht 165.1 cm; Wt 98.9 kg
[2017-05-05] MEDS ORDERED: fentaNYL-PF 50 mCg/mL 2 mL Inj ONE (14:06)
[2017-05-05] MEDS ORDERED: Propofol 10,000 mCg/mL 20 mL Inj ONE (14:06)
[2017-05-05 15:10] VITALS: BP 118/75; PULSE 75; RESP 14; O2SAT 98
[2017-05-05] MEDS ORDERED: OMEP40CA36 PO (15:12)
[2017-05-05] MEDS ORDERED: OXYC1TAB24 PO (15:12)
[2017-05-05] MEDS ORDERED: RANI150C4 PO (15:12)
--- NOTE | 2017-05-05 16:27 | PCM.HPANE ---
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 Admitting Provider: Attending Provider:Anthony Osborne MD Primary Care Physician:[facility] Other Provider: Reason for Visit Diarrhea/Epigastric Pain Ht/WT & BMI Height (Feet): 5 Height (Inches): 5 Weight (Kilograms): 98.88 Body Mass Index 36.00 Allergies Coded Allergies: hydrocodone (Verified Allergy, Intermediate, rash--itch, 05/05/17) Past Anesthesia History Anesthesia History: Denies:: Abnormal Airway, Anesthesia Reactions, Difficult Intubation, Fam Anesthesia Reaction, Fam Malignant Hypertherm, Malignant Hyperthermia Diabetes History Hx Diabetes?: No Type of Diabetes: Type II MRSA MRSA: Yes (7 years ago, buttock currently cleared ) Medications Home Meds Incl Beta Marcos: No Reported Medications Ranitidine 150 Mg [id number] Mg PO DAILY Ref 0 05/05/17 Omeprazole 40 Mg Capsule.dr40 Mg PO DAILY Ref 0 05/05/17 oxyCODONE-Acetaminophen 5-325 mg 1 Each Tablet1-2 Tab PO Q6H PRN For Pain Ref 0 05/05/17 Last Time Dose Received Takes 1 percocet/dd No meds taken today History History of ENT Problems?: No HEENT History: Denies:: Abnormal Airway Difficult Intubation Dysphagia Hearing Problem Denture Type: None Teeth Condition: Within Normal Limits Hx of Heart Problems?: No Cardiovascular History: Denies:: AICD Atrial Fibrillation Chest Pain Congestive Heart Failure Hypertension Pacemaker Valvular Heart Disease Hx of Respiratory Problem?: No Respiratory History: Denies:: Asthma COPD Cough Hemoptysis Pneumonia Tuberculosis Hx Neurologic Problems?: Yes Neurological History: Positive for:: Headaches Denies:: CVA Seizures Hx of GI Problems?: Yes Hx of Problems?: No Female Hx: Denies:: Currently Hx Musculoskeletal Problems?: Yes Musculoskeletal History: Positive for:: Back Injury (injury at work (lifting)) Denies:: Joint Replacement Hx of Psycho/Social Problems?: Yes Psycho Social History: Positive for:: Anxiety (high levels of anxiety) Denies:: Bipolar Disorder Hx Depression Suicide Attempt Hx Surgeries?: Yes ( X 3) Hx Any Other Health Problems?: Yes Other History: Positive for:: Hospitalization ( of daughter) History Blood Transfusions: Denies:: Blood Transfuse Reaction Blood Transfusions Hx Diabetes: No Hx Alcohol Use: Yes (OCCASIONALLY)Hx Substance Use: No Smoking Status: Current Some Day Smoker Have You Smoked inLast 12 mo: Yes Stop/Bang Treated for Sleep Apnea?: No Do You Have a CPAP Machine?: No S-Snoring: Do You Snore Loudly: No T-Tired: feel tired, fatigued: No O-Obsered: Observed not breath: No P-Blood Pressure: treated: No B- Body Mass Index > 35 kg/m2: Yes A- Age over 50: No N- Neck Large Circumference: Yes G- Gender Male: No OSCAR Total Score: 2 Risk Assessment Category Category 1A: Patient has history of documented sleep apnea, and HAS NOT received any narcotic, sedative or anesthesia administration during this stay. Category 1B: Patient has history of documented sleep apnea, and HAS received any narcotic , sedative or anesthesia administration during this stay Category 2: Patient has SUSPECTED Obstructive Sleep Apnea, and HAS received any narcotic , sedative or anesthesia administration during this stay. Category 3: Patient has SUSPECTED Obstructive Sleep Apnea and HAS NOT received narcotic, sedative or anesthesia administration during this stay. Category 4: Outpatient in Procedural Areas with known sleep apnea or who screen positive for High Risk via the STOP/BANG questionnaire. Exam Exam Vital Signs Vital Signs Date Time Temp Pulse Resp B/P Pulse Ox O2 Delivery O2 Flow Rate FiO2 05/05/17 15:10 36.9 75 14 118/75 98 Room Air General Appearance: Alert, Oriented X3 HEENT/AIRWAY: MP 2, Neck Movement (FROM) Lungs: Clear to Auscultation, Clear to Percussion Heart: Exam Unremarkable, Regular Rate/Rhythm Plan Impression Patient chart reviewed, patient interviewed and anesthestic plan with risks, benefits, and alternatives discussed, and informed consent obtained. NPO per Anesth. Guidelines: Yes ASA Physical Status: ASA3 Severe Disease (morbid obesity; chornic opiate use) Anesthetic Plan: MAC Bene/Risks/Altern/Consents: Yes HP Complete Prior to Induction: Yes Jony Hoff MD May 05, 2017 16:27
[2017-05-05] MEDS ORDERED: Ondansetron 2 mg/mL 2 mL Inj IVPUSH PRN (17:05)
[2017-05-05] MEDS ORDERED: Lactated Ringer's 1,000 ML IV SCH (17:05)
[2017-05-05] MEDS ORDERED: MetoCLOpramide 5 mg/mL 2 mL Inj IVPUSH PRN (17:05)
--- NOTE | 2017-05-05 17:51 | PCM.ENDEGD ---
EGD Date of Service: May 05, 2017 Physician Anthony Osborne MD Pre Procedure Diagnosis: Abdominal pain diarrhea Post Procedure Dx & Findings: Normal upper GI Procedure Esophagogastroduodenoscopy PROCEDURE IN DETAIL: Sedation by anesthesiology After proper sedation, Olympus video endoscope was inserted into patient's mouth and esophagus was successfully intubated. Scope introduced esophagus. Esophagus showed normal shiny whitish mucosa consistent with squamous cell component. Z line was intact at 40 cm from the incisors. Scope further advanced to the stomach. Stomach showed normal shiny mucosa with normal appearing rugae folds without any ulcer mass erosion. Cardia fundus body antrum pylorus were all visualized. Retroflexion was done. Stomach was easily inflated and deflatable using air. Scope further advanced to the distal duodenum. Duodenum revealed normal villous structures with normal appearing folds without any mass ulcer erosion. 6 random biopsies done for celiac disease. Impression Normal upper GI Recommendation Colonoscopy Await random biopsy Presedation Assessment Risks and Benefits Informed consent was obtained from the patient after all risks and benefits including but not limited to drug reaction, infection, pain, bleeding, perforation, as well as alternatives were discussed. Patient monitoring Continuous pulse oximetry, cardiac monitoring, blood pressure monitoring, IV access, and oxygen at 2L per nasal cannula. Complications There were no periprocedural complications identified. Post Procedure Plan Post Procedure Recommendations 1. Restrict activities today. 2. Resume normal activities in the morning. 3. Resume medications. 4. GERD behavioral modification: - Avoid fatty, acidic, spicy, large meals - Do not lie down after meals - Do not eat or drink anything for at least 2 1/2 hours before going to bed at night - Discontinue tobacco and alcohol - Decrease or avoid caffeine - Avoid chocolate and mints - Decrease weight - Avoid aspirin and non steroidal anti-inflammatory agents (NSAID) such as Aleve, Advil, Mobic, Naproxen, Ibuprofen, etc 5. Add proton pump inhibitor. Take 30 minutes before 1st meal of the day. 6. Patient informed of normal post procedure side effects as bloating, drowsiness, blood streaking in the stool 7. If gastric biopsy reveal H.pylori, continue with appropriate treatment 8. If small bowel biopsy reveals celiac, continue with appropriate treatment 9. Please don't hesitate to call me with any questions Anthony Osborne MD May 05, 2017 17:51
--- NOTE | 2017-05-05 18:12 | PCM.ENDCOL ---
Colonoscopy Date of Service: May 05, 2017 Physician Anthony Osborne MD Pre Procedure Diagnosis: Diarrhea abdominal pain Post Procedure Dx & Findings: Normal study Procedure Colonoscopy PROCEDURE IN DETAIL: Sedation given by anesthesiology Prep adequate Withdrawal time 14 minutes After unremarkable rectal examination the Olympus video colonoscope was inserted patient's anal canal and was advanced to cecum. Landmarks were identified including the ileocecal valve and appendiceal orifice. Scope was further advanced and terminal ileum. Advanced 10 cm. Visualized terminal ileum showed normal villous structures without any ulcer mass or erosions. Scope was withdrawn systematically. Visualized colonic mucosa showed healthy shiny mucosa with normal healthy-appearing vasculature. Random biopsies were taken for workup of diarrhea from the cecum to the rectum. In the rectum retroflexion was done which showed hemorrhoids. Anal canal was inspected carefully on the way out and hemorrhoids noted. Impression Hemorrhoids No family history of colon cancer polyp Recommendation Repeat colonoscopy when patient turns 51 Presedation Assessment Risks and Benefits Informed consent was obtained from the patient after all risks and benefits including but not limited to drug reaction, infection, pain, bleeding, perforation, as well as alternatives were discussed. Patient monitoring Continuous pulse oximetry, cardiac monitoring, blood pressure monitoring, IV access, and oxygen at 2L per nasal cannula. Complications There were no periprocedural complications identified. Post Procedure Plan Post Procedure Recommendations 1. Restrict activities today. 2. Resume normal activities in the morning. 3. Resume medications. 4. Patient informed of normal post procedure side effects as bloating, drowsiness, blood streaking in the stool. 5. average risk CRCS. If colon polyps come back as: -Hyperplastic- can repeat colonoscopy in 10 years -Tubular adenoma- repeat colonoscopy in 5 years -Tubulovillous/villous adenoma- repeat colonoscopy in 3 years -If any dysplasia- return to clinic as soon as possible 6. Please don't hesitate to call me with any questions. Anthony Osborne MD May 05, 2017 18:12
[2017-05-05 18:15] VITALS: BP 116/68; PULSE 99; RESP 15; O2SAT 99
[2017-05-05 18:25] VITALS: BP 112/67; PULSE 99; RESP 15; O2SAT 99
[2017-05-05 18:40] VITALS: BP 126/59; PULSE 99; RESP 15; O2SAT 99
--- NOTE | 2017-05-05 18:56 | PCM.HPANE ---
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 Admitting Provider: Attending Provider:Anthony Osborne MD Primary Care Physician:[facility] Other Provider: Reason for Visit Diarrhea/Epigastric Pain Ht/WT & BMI Height (Feet): 5 Height (Inches): 5 Weight (Kilograms): 98.88 Body Mass Index 36.00 Allergies Coded Allergies: hydrocodone (Verified Allergy, Intermediate, rash--itch, 05/05/17) Past Anesthesia History Anesthesia History: Denies:: Abnormal Airway, Anesthesia Reactions, Difficult Intubation, Fam Anesthesia Reaction, Fam Malignant Hypertherm, Malignant Hyperthermia Diabetes History Hx Diabetes?: No Type of Diabetes: Type II MRSA MRSA: Yes (7 years ago, buttock currently cleared ) Medications Home Meds Incl Beta Marcos: No Reported Medications Ranitidine 150 Mg [id number] Mg PO DAILY Ref 0 05/05/17 Omeprazole 40 Mg Capsule.dr40 Mg PO DAILY Ref 0 05/05/17 oxyCODONE-Acetaminophen 5-325 mg 1 Each Tablet1-2 Tab PO Q6H PRN For Pain Ref 0 05/05/17 History History of ENT Problems?: No HEENT History: Denies:: Abnormal Airway Cataracts Difficult Intubation Dysphagia Glaucoma Hearing Problem Sinus Problem TMJ Denture Type: None Teeth Condition: Within Normal Limits Hx of Heart Problems?: No Cardiovascular History: Denies:: AICD Abdominal Aortic Aneurism Atrial Fibrillation Cardiac Surgery Chest Pain Congestive Heart Failure Coronary Artery Disease Edema Heart Murmur Hypertension Irregular Heartbeat Pacemaker Peripheral Vascular Rheumatic Fever Thrombophlebitis Valvular Heart Disease Hx of Respiratory Problem?: No Respiratory History: Denies:: Asthma COPD Chest Surgery Cough Dyspnea Emphysema Hemoptysis Oxygen Administration Pneumonia Pulmonary Embolism Tuberculosis Use of C-PAP Machine Use of Inhalers / NEBS Hx Neurologic Problems?: Yes Neurological History: Positive for:: Headaches Denies:: Alzheimer's Disease CVA Dementia Dizziness Multiple Sclerosis Parkinson's Disease Peripheral Neuropathy Seizures TIA Hx of GI Problems?: Yes Gastrointestinal History: Denies:: Cirrhosis Diverticulitis Gall Bladder Disease Gastroesphageal Reflux Gastrointestinal Bleeding Heartburn Hepatitis Hiatal Hernia Liver Disease Rectal Bleeding Hx of Problems?: No Genitourinary History: Denies:: HX of Hemodialysis Kidney Stones Urinary Tract Infection HX of Peritoneal Dialysis: No Female Hx: Denies:: Currently Endometriosis Pelvic Inflammatory Problems with Breasts? Skin History: Denies:: History Skin Disorders? Pressure Ulcers Hx Musculoskeletal Problems?: Yes Musculoskeletal History: Positive for:: Back Injury (injury at work (lifting)) Denies:: Degenerative Joint Fibromyalgia Joint Replacement Musculoskeletal Trauma Myasthenia Gravis Osteoarthritis Rheumatoid Arthritis Systemic Lupus Hx of Psycho/Social Problems?: Yes Psycho Social History: Positive for:: Anxiety (high levels of anxiety) Denies:: Bipolar Disorder Hx Depression Suicide Attempt Hx Surgeries?: Yes ( X 3) Hx Any Other Health Problems?: Yes Other History: Positive for:: Hospitalization ( of daughter) Denies:: Cancer Endocrine Disease Thyroid Disease History Blood Transfusions: Denies:: Accept Blood Products? Blood Transfuse Reaction Blood Transfusions Hx Diabetes: No Hx Alcohol Use: Yes (OCCASIONALLY)Hx Substance Use: No Smoking Status: Current Some Day Smoker Have You Smoked inLast 12 mo: Yes Stop/Bang Treated for Sleep Apnea?: No Do You Have a CPAP Machine?: No S-Snoring: Do You Snore Loudly: No T-Tired: feel tired, fatigued: No O-Obsered: Observed not breath: No P-Blood Pressure: treated: No B- Body Mass Index > 35 kg/m2: Yes A- Age over 50: No N- Neck Large Circumference: Yes G- Gender Male: No OSCAR Total Score: 2 Risk Assessment Category Category 1A: Patient has history of documented sleep apnea, and HAS NOT received any narcotic, sedative or anesthesia administration during this stay. Category 1B: Patient has history of documented sleep apnea, and HAS received any narcotic , sedative or anesthesia administration during this stay Category 2: Patient has SUSPECTED Obstructive Sleep Apnea, and HAS received any narcotic , sedative or anesthesia administration during this stay. Category 3: Patient has SUSPECTED Obstructive Sleep Apnea and HAS NOT received narcotic, sedative or anesthesia administration during this stay. Category 4: Outpatient in Procedural Areas with known sleep apnea or who screen positive for High Risk via the STOP/BANG questionnaire. Exam Exam Vital Signs Vital Signs Date Time Temp Pulse Resp B/P Pulse Ox O2 Delivery O2 Flow Rate FiO2 05/05/17 15:10 36.9 75 14 118/75 98 Room Air General Appearance: Alert, Oriented X3 HEENT/AIRWAY: MP 2, Neck Movement (FROM), Mouth Opening (from) Lungs: Clear to Auscultation, Clear to Percussion, Normal Air Movement Heart: Exam Unremarkable, Regular Rate/Rhythm Plan Impression Patient chart reviewed, patient interviewed and anesthestic plan with risks, benefits, and alternatives discussed, and informed consent obtained. NPO per Anesth. Guidelines: Yes ASA Physical Status: ASA2 Mod Systemic Disease Anesthetic Plan: GA, MAC Bene/Risks/Altern/Consents: Yes HP Complete Prior to Induction: Yes Iban Prado MD May 05, 2017 17:05
--- NOTE | 2017-05-05 18:56 | PCM.ANEP1 ---
Post Anesthesia PACU Phase 1 Assessment Vital Signs Vital Signs Date Time Temp Pulse Resp B/P Pulse Ox O2 Delivery O2 Flow Rate FiO2 05/05/17 15:10 36.9 75 14 118/75 98 Room Air Anesthetic Administered: GA, MAC Level of Alertness: Awake, talking SAM's with Equal Strength: Yes Pain: No Nausea or Vomiting: No CV Function & Hydration Stable: Yes Airway Device: n/a Oxygen Delivery: Room Air Lungs: Clear to Auscultation, Clear to Percussion, Normal Air Movement Dermatome Level: Full Sensation PACU Phase 2 Assessment Complications: No Follow up Care: N/A Patient Instructions Provided: N/A Iban Prado MD May 05, 2017 18:56
--- NOTE | 2017-05-10 11:22 | PATH ---
SURGICAL PATHOLOGY Attending Physician:Anthony Osborne M.D. CASE STATUS: Signed Out PATIENT NAME: ADRIANA ALTAMIRANO PID: [id number] : 1990 DATE COLLECTED:05/05/2017 00:00 SPECIMEN: 1: Duodenum, Biopsy 2: Colon, Biopsy CLINICAL HISTORY: 1). DUODENAL RANDOM BIOPSY 2). RANDOM COLON BIOPSY FINAL DIAGNOSIS: 1.DUODENAL RANDOM BIOPSY: DUODENAL MUCOSA WITH NO DIAGNOSTIC ABNORMALITY. Negative for active inflammation, features of sprue, dysplasia or malignancy. 2.RANDOM COLON BIOPSY: - COLONIC MUCOSA WITH FEW BENIGN LYMPHOID AGGREGATES. - Negative for active, chronic, and microscopic colitis. - Negative for dysplasia and malignancy. ICD10 R10.9 GROSS DESCRIPTION: The specimen is received in two formalin filled containers labeled with the patient's name. 1). The specimen is labeled "duodenal random" and consists of 3 portions of tissue which aggregate to 0.2 x 0.2 x 0.2 CM. The specimen is entirely submitted in cassette 1A. 2). The specimen is labeled "random colon" and consists of multiple portions of tissue which aggregate to 0.4 x 0.4 x 0.3 CM. The specimen is totally submitted in cassette 2A. 05/06/2017W[place] MICRO DESCRIPTION: See diagnosis. ICD-9 CODES: CPT CODES: 1: 94126 2: 68884 Electronically Signed Out Krishna Hatch MD [facility] [address], [place] [address] Technical component performed at [employer] [facility], [facility] [address], [place], [address]
== END 2017-05-05 23:59 | disposition home or self-care (01) ==
LOC: END 14:05
PROVIDERS: ATTEND Internal Medicine
DX: R19.7 Diarrhea, unspecified (principal); R10.13 Epigastric pain; K64.8 Other hemorrhoids; I10 Essential (primary) hypertension; F17.210 Nicotine dependence, cigarettes, uncomplicated
CPT/HCPCS: 43239; 45380; 88305; J2704; J3010